=== PATIENT | male | born 1975 ===

== ENCOUNTER 2019-09-10 05:05 | Day surgery (SDC) | payer OTHER ==
[2019-09-10] MEDS ORDERED: PERCOCET 5-3251 EACH PO (10:11)
[2019-09-10] MEDS ORDERED: NEURONTIN300 MG PO (10:11)
[2019-09-10] MEDS ORDERED: COLACE100 MG PO (10:13)
== END 2019-09-10 12:55 | disposition home or self-care (01) ==
LOC: CIR.AMB 05:05
DX: K40.90 Unilateral inguinal hernia, without obstruction or gangrene, not specified as recurrent (principal)